=== PATIENT | female | born 1945 | race Caucasian/White ===

== ENCOUNTER → 2024-02-18 | Day surgery (SDC) | payer MEDICARE ==
[~2024-02-18] MED LIST: B COMPLEX WITH1 EACH PO; BUPIVACAINE HCL 0.5% INJ 30 ML VIAL INJ ONE; CINNAMON500 MG PO; LEVOTHYROXINE100 MC1 PO; OS-CAL 500+D T1 EACH PO; PRESERVISION A1 EAC3 PO; SODIUM CHLORIDE 0.9% 250ML 250 ML ONE; TURMERIC500 M1 PO; Vancomycin IV 1 GM VIAL ONE
[2024-02-18 07:07] LABS: BASOPHILS % 0.4 % (0.0-1.0); EOSINOPHILS # (AUTO) 0.2 (0.0-0.4); EOSINOPHILS % 3.3 % (0.0-6.0); HEMATOCRIT 38.4 % (34.2-44.1); HEMOGLOBIN 12.1 g/dL (12.0-16.0); LYMPHOCYTES # (AUTO) 1.2 (1.0-3.2); LYMPHOCYTES % 25.4 % (18.0-39.1); MEAN CORPUSCULAR HEMOGLOBIN 31.8 pg (28-32); MEAN CORPUSCULAR HGB CONC 31.5 g/dL (31-35); MEAN CORPUSCULAR VOLUME 101.1 fL (81-99); MONOCYTES # (AUTO) 0.5 (0.2-0.8); MONOCYTES % 9.8 % (4.4-11.3); NEUTROPHILS # (AUTO) 2.8 (2.1-6.9); NEUTROPHILS % 60.9 % (38.7-80.0); PLATELET COUNT 188 x10e3/uL (140-360); RED CELL DISTRIBUTION WIDTH 13.1 % (11.7-14.4)
[2024-02-18] MEDS: LACTATED RINGER'S 1,000 ML ONE (08:20)
[2024-02-18] MEDS: SCOPOLAMINE 1 MG PATCH ONE (08:20)
[2024-02-18 10:15] VITALS: BP 136/85; PULSE 56; RESP 18; O2SAT 99
== END | disposition home or self-care (01) ==
LOC: OR 05:46
PROVIDERS: ATTEND Podiatrist Foot & Ankle Surgery
DX: M79.5 Residual foreign body in soft tissue (principal); I10 Essential (primary) hypertension; E03.9 Hypothyroidism, unspecified; E66.01 Morbid (severe) obesity due to excess calories; Z88.1 Allergy status to other antibiotic agents; Z79.899 Other long term (current) drug therapy
CPT/HCPCS: 28192; 36415; 71046; 85025; 88300; J3370; J7050; J7121